=== PATIENT | female | born 1985 | race Two or more races ===

== ENCOUNTER 2023-03-06 07:55 | Emergency (ER) | payer MEDICAID ==
[~2023-03-06] VITALS: Ht 157.5 cm; Wt 61.4 kg
[2023-03-06] MEDS ORDERED: IBUPROFEN 600 MG TABLET PO ONE (08:30)
[2023-03-06 08:44] LABS: BASOPHILS % (AUTO) 1.5 % (0.0-2.0); EOSINOPHILS % (AUTO) 2.8 % (1.0-6.0); HEMATOCRIT 24.3 % (36-46); LYMPHOCYTES # (AUTO) 1.1 K/uL (1.0-4.8); LYMPHOCYTES % (AUTO) 21.4 % (22.0-44.0); MEAN CORPUSCULAR HEMOGLOBIN 16.2 pg (26.0-34.0); MEAN CORPUSCULAR HGB CONC 27.5 G/dL (31.0-37.0); MEAN CORPUSCULAR VOLUME 59 fL (80-100); MONOCYTES # (AUTO) 0.3 K/uL (0.1-1.0); MONOCYTES % (AUTO) 5.7 % (2.0-9.0); NEUTROPHILS # (AUTO) 3.6 K/uL (1.8-7.7); NEUTROPHILS % (AUTO) 68.6 % (40.0-70.0); PLATELET COUNT (AUTO) 412 K/uL (150-450); RED BLOOD CELL COUNT(AUTO) 4.13 MIL/uL (4.00-5.20); RED CELL DISTRIBUTION WIDTH 19.2 % (11.5-14.5)
[2023-03-06 08:53] LABS: HEMOGLOBIN 6.7 g/dL (12.0-16.0)
[2023-03-06 12:50] VITALS: BP 127/69
[2023-03-06 13:05] VITALS: BP 121/66
[2023-03-06 13:20] VITALS: BP 123/68
[2023-03-06 13:50] VITALS: BP 119/68
[2023-03-06] MEDS ORDERED: IBUP-1492 PO (14:01)
[2023-03-06 14:20] VITALS: BP 122/71
[2023-03-06 14:21] VITALS: BP 122/71
== END 2023-03-06 15:05 | disposition home or self-care (01) ==
LOC: EMS 07:59
DX: S16.1XXA Strain of muscle, fascia and tendon at neck level, initial encounter (principal); D64.9 Anemia, unspecified; S10.93XA Contusion of unspecified part of neck, initial encounter; Z98.890 Other specified postprocedural states; V49.88XA Car occupant (driver) (passenger) injured in other specified transport accidents, initial encounter; Y93.89 Activity, other specified; Y92.89 Other specified places as the place of occurrence of the external cause; Y99.8 Other external cause status
CPT/HCPCS: 99285; 36430; 72125; 85025; 86850; 86900; 86901; 86923; 36415; 73030; 74176; P9016

== ENCOUNTER 2024-01-23 12:00 | Emergency (ER) | payer MEDICAID, OTHER ==
[~2024-01-23] VITALS: Ht 154.9 cm; Wt 66.4 kg
[2024-01-23] VITALS (7 sets, daily range): BP systolic 120–144; BP diastolic 63–94; PULSE 70–79; RESP 18; TEMP 98.4–98.6
[~2024-01-23 12:00] MED LIST: IBUP-1492 PO
[2024-01-23 12:34] LABS: BASOPHILS % (AUTO) 1.6 % (0.0-2.0); EOSINOPHILS % (AUTO) 2.3 % (1.0-6.0); HEMATOCRIT 23.1 % (36-46); LYMPHOCYTES # (AUTO) 1.6 K/uL (1.0-4.8); LYMPHOCYTES % (AUTO) 24.5 % (22.0-44.0); MEAN CORPUSCULAR HEMOGLOBIN 16.4 pg (26.0-34.0); MEAN CORPUSCULAR VOLUME 59 fL (80-100); MONOCYTES # (AUTO) 0.3 K/uL (0.1-1.0); MONOCYTES % (AUTO) 5.3 % (2.0-9.0); NEUTROPHILS # (AUTO) 4.3 K/uL (1.8-7.7); NEUTROPHILS % (AUTO) 66.3 % (40.0-70.0); PLATELET COUNT (AUTO) 440 K/uL (150-450); RED BLOOD CELL COUNT(AUTO) 3.93 MIL/uL (4.00-5.20); RED CELL DISTRIBUTION WIDTH 19.2 % (11.5-14.5); WHITE BLOOD COUNT (AUTO) 6.5 K/uL (4.5-11.0)
[2024-01-23 12:40] LABS: HEMOGLOBIN 6.5 g/dL (12.0-16.0)
[2024-01-23 12:43] LABS: ANION GAP 9 mmol/L (8-16); CALCIUM, TOTAL 8.6 mg/dL (8.8-10.5); CARBON DIOXIDE 26 mmol/L (22-29); CHLORIDE 104 mmol/L (98-107); CREATININE 0.59 mg/dL (0.60-1.30); GLOMERULAR FILTR. RATE CALC > 60 mL/min (>60); GLUCOSE,RANDOM 117 mg/dL (70-110); POTASSIUM 3.6 mmol/L (3.5-5.1); SODIUM SERUM 139 mmol/L (136-145); UREA NITROGEN, BLOOD 9 mg/dL (7-18)
[2024-01-23 12:48] LABS: ALANINE AMINOTRANSFERASE 18 U/L (12-78); ALBUMIN 3.7 g/dL (3.4-5.0); ALKALINE PHOSPHATASE 66 U/L (46-116); ASPARTATE AMINOTRANSFERASE 17 U/L (15-37); BILIRUBIN,TOTAL 0.5 mg/dL (0.1-1.0); TOTAL PROTEIN, SERUM 7.1 g/dL (6.4-8.2)
[2024-01-23 13:23] LABS: RBC MORPHOLOGY COMMENT ABNORMAL RBC MORPH
== END 2024-01-23 17:14 | disposition home or self-care (01) ==
LOC: EMS 12:00
DX: D64.9 Anemia, unspecified (principal); N92.0 Excessive and frequent menstruation with regular cycle; Z90.49 Acquired absence of other specified parts of digestive tract; Z98.890 Other specified postprocedural states
CPT/HCPCS: 99285; 36430; 80053; 85025; 86850; 86900; 86901; 86923; 36415; P9016